=== PATIENT | female | born 1995 | race Caucasian/White ===

== ENCOUNTER 2017-11-29 10:27 | Emergency (ER) | payer OTHER ==
[~2017-11-29] VITALS: Ht 162.6 cm; Wt 80.7 kg
== END 2017-11-29 21:02 | disposition home or self-care (01) ==
LOC: ER 10:27
DX: O98.511 Other viral diseases complicating pregnancy, first trimester (principal); B34.9 Viral infection, unspecified; Z34.01 Encounter for supervision of normal first pregnancy, first trimester

== ENCOUNTER 2018-04-18 12:29 | Outpatient (CLI) | payer OTHER | END 2018-04-19 11:05 | disposition home or self-care (01) | LOC: OBS/DEL 12:29 → LDR 12:30 → OBS/DEL 12:30 | DX: O26.893 Other specified pregnancy related conditions, third trimester (principal); R05 Cough; J11.1 Influenza due to unidentified influenza virus with other respiratory manifestations; Z34.83 Encounter for supervision of other normal pregnancy, third trimester ==

== ENCOUNTER 2018-06-14 10:02 | Inpatient (IN) | payer OTHER ==
[~2018-06-14] VITALS: Ht 162.6 cm; Wt 94.8 kg
[2018-06-14] MEDS ORDERED: MUCINEX100 MG PO (10:53)
[2018-06-14] MEDS ORDERED: OBSTETRIX DHA1 EACH PO (10:53)
== END 2018-06-17 11:12 | disposition home or self-care (01) | DRG 788 ==
LOC: OB/GYN 10:02 → LDR 10:02 → OB/GYN 14:12
PROVIDERS: ADMIT Obstetrics & Gynecology
PROC: 4A1HXCZ Monitoring of Products of Conception, Cardiac Rate, External Approach (ICD-10-PCS; 2018-06-14)
PROC: 10D00Z1 Extraction of Products of Conception, Low, Open Approach (ICD-10-PCS; principal; 2018-06-14 12:00)
DX: O82 Encounter for cesarean delivery without indication (principal); Z3A.37 37 weeks gestation of pregnancy; Z37.0 Single live birth; Z22.330 Carrier of Group B streptococcus